=== PATIENT | male | born 1965 | race Hispanic/Latino ===

== ENCOUNTER 2017-01-09 07:52 | Inpatient (IN) | payer MEDICARE ==
[~2017-01-09 07:52] MED LIST: ANCEF/STERILE WATER 2 GM/20 ML 2 GM/20 ML SYRINGE IV NR; NACL 0.9% 1000 ML 1,000 ML IV SCH
[2017-01-09 10:41] LABS: Basophils % (Auto) 1.2 % (0.0-1.8); Eosinophils % (Auto) 2.6 % (0.0-4.3); Hematocrit 40.9 % (35.5-45.6); Hemoglobin 13.4 gm/dl (11.8-15.2); Mean Corpuscular HGB Conc 33 % (32-34); Mean Corpuscular Hemoglobin 28 pg (28-32); Mean Corpuscular Volume 84 fl (84-94); Platelet Count 228 K/mm3 (140-440); Red Blood Count 4.88 M/mm3 (3.65-5.03); Red Cell Distribution Width 13.9 % (13.2-15.2); White Blood Count 7.9 K/mm3 (4.5-11.0)
[2017-01-09 10:49] LABS: INR 1.03 (0.87-1.13)
[2017-01-09 10:50] LABS: Partial Thromboplastin Time 24.9 Sec. (24.2-36.6)
--- NOTE | 2017-01-09 11:35 | Short Stay Summary ---
Short Stay Documentation Date of service: 01/09/17 - History Principal diagnosis: Right nephrolithiasis Past Medical History: other (kidney stones) Social history: no significant social history - Allergies and Medications Current Medications: Allergies Iodinated Contrast Media - IV Dye Allergy (Verified 01/03/17 11:51) Hives tramadol Allergy (Verified 01/03/17 11:51) Headache Home Medications Medication Instructions Recorded Confirmed Last Taken Type Albuterol Sulfate [Ventolin HFA] 2 puff IH Q4H PRN 01/03/17 01/09/17 01/08/17 History Aspirin [Adult Low Dose Aspirin EC] 81 mg PO DAILY 01/03/17 01/09/17 01/08/17 History Carisoprodol [Soma] 350 mg PO TID PRN 01/03/17 01/09/17 01/08/17 History Carvedilol [Coreg] 12.5 mg PO BID 01/03/17 01/09/17 01/08/17 History Citalopram [Celexa] 40 mg PO DAILY 01/03/17 01/09/17 01/08/17 History Diphenoxylate/Atropine [Lomotil] 1 tab PO PRN PRN 01/03/17 01/09/17 Unknown History Fenofibrate [Tricor] 145 mg PO QDAY 01/03/17 01/09/17 01/08/17 History Gabapentin [Neurontin] 300 mg PO QHS 01/03/17 01/09/17 01/08/17 History Meclizine [Antivert] 25 mg PO BID PRN 01/03/17 01/09/17 01/08/17 History Nitroglycerin [Nitrostat] 0.4 mg SL Q5M PRN 01/03/17 01/09/17 Unknown History Omeprazole 40 mg PO DAILY 01/03/17 01/09/17 01/08/17 History Oxycodone HCl/Acetaminophen 1 each PO Q6HR PRN 01/03/17 01/09/17 01/08/17 History [Percocet 10/325 mg] Pravastatin Sodium [Pravastatin] 40 mg PO QHS 01/03/17 01/09/17 01/08/17 History Tadalafil [Cialis] 10 mg PO PRN PRN 01/03/17 01/09/17 Unknown History Ubidecarenone [Coq-10] 100 mg PO DAILY 01/03/17 01/09/17 01/08/17 History metFORMIN [Glucophage] 500 mg PO BID 01/03/17 01/09/17 01/07/17 History Active Medications Cefazolin Sodium (Ancef/Sterile Water 2 Gm/20 Ml) 2 gm in 20 mls @ 80 mls/hr IV PREOP NR PRN Reason: Protocol Stop: 01/09/17 23:59 Sodium Chloride (Nacl 0.9% 1000 Ml) 1,000 mls @ 42 mls/hr IV DIRECT [place] Last Admin: 01/09/17 10:39 Dose: 42 mls/hr - Physical exam General appearance: no acute distress, obese Integumentary: no rash, no growths HEENT: Atraumatic Lungs: Normal air movement Heart: Regular rate Gastrointestinal: normal Male Genitourinary: deferred Rectal Exam: deferred Extremities: no ischemia Neurological: Normal gait, Normal tone - Brief post op/procedure progress note Date of procedure: 01/09/17 Pre-op diagnosis: Right nephrolithiasis Post-op diagnosis: same Procedure: /US and fluoro guided nephroureteral stent Anesthesia: local Surgeon: JAEL ALDANA Estimated blood loss: minimal Pathology: none Condition: stable - Disposition Condition at discharge: Good Disposition: [id number] IP Short Stay Discharge Plan Activity: advance as tolerated Weight Bearing Status: Weight Bear as Tolerated Diet: regular Wound: keep clean and dry, per your surgeon's advice Follow up with: ALEX SAMSON MD [Staff Physician] - 7 Days
--- NOTE | 2017-01-09 11:38 | Operative Report ---
Operative Report Operative Report: EXAM: ULTRASOUND AND FLUOROSCOPIC GUIDED PLACEMENT OF RIGHT NEPHROURETERAL STENT CLINICAL INDICATION: PATIENT WITH RIGHT NEPHROLITHIASIS, STENT PLACED IN ANTICIPATION OF SURGERY TOMORROW DATE: 01/09/2017 PROCEDURE: Following an explanation of the risks, benefits and alternatives; written informed consent was obtained. The patient was brought to the injury graphic suite and placed in prone position on the examination table. Initial ultrasound evaluation of the right kidney demonstrated no hydronephrosis. There was minimal calyceal dilatation and the patient's right back and flank were prepped and draped in the usual sterile fashion. 1% lidocaine was used for anesthesia. Under ultrasound guidance, a posterior middle calyx was cannulated with a 15 cm 21-gauge needle. A 0.018 guidewire was advanced centrally under fluoroscopy. The needle was removed and AccuStick transition tissue packer placed over the guidewire. Contrast was injected through the AccuStick transition dilator to document appropriate puncture site as well as appropriate positioning for stone retrieval. The 0.018 guidewire was exchanged for a 0.035 guidewire which was advanced to the bladder. The transition dilator was then removed and a 5 Beninese pigtail catheter was placed over the guidewire and advanced to position the pigtail within the bladder with the catheter exit site through the kidney on to the skin surface. The catheter was securely fasten the skin surface using 2-0 Ethilon and coiled and sterilely dressed. The patient tolerated the procedure well. There were no immediate post procedure complications. Conscious sedation was performed under the guidance of radiologic nursing. Continuous cardiopulmonary monitoring was utilized. IMPRESSION: 1) Ultrasound and fluoroscopic guided placement of a 5 Beninese nephroureteral stent through a posterior middle calyx in the right kidney.
[2017-01-09] MEDS ORDERED: NORCO 5/325 ONE (13:51)
[2017-01-09] MEDS: NORCO 5/325 PO PRN (14:00)
[2017-01-09 14:04] LABS: Alanine Aminotransferase 12 units/L (7-56); Albumin 4.4 g/dL (3.9-5); Albumin/Globulin Ratio 1.9 %; Alkaline Phosphatase 46 units/L (35-129); Anion Gap 20 mmol/L; BUN/Creatinine Ratio 15.55; Blood Urea Nitrogen 14 mg/dL (9-20); Calcium 9.4 mg/dL (8.4-10.2); Carbon Dioxide 20 mmol/L (22-30); Chloride 102.3 mmol/L (98-107); Glucose 117 mg/dL (75-100); Potassium 4.5 mmol/L (3.6-5.0); Sodium 138 mmol/L (137-145); Total Protein 6.7 g/dL (6.3-8.2)
[2017-01-09] MEDS ORDERED: AMBIEN PO PRN (17:58)
[2017-01-09] MEDS ORDERED: PERCOCET 5/325 PO PRN (22:50)
[2017-01-09] MEDS ORDERED: ZOFRAN IV PRN (22:50)
[2017-01-09] MEDS ORDERED: TYLENOL PO PRN (22:50)
[2017-01-09] MEDS ORDERED: MILK OF MAGNESIA PO PRN (22:50)
[2017-01-09] MEDS ORDERED: DULCOLAX PR PRN (22:50)
--- NOTE | 2017-01-09 22:50 | History and Physical Report ---
History of Present Illness Date of examination: 01/09/17 Date of admission: 01/09/17 13:36 Chief complaint: Rt Ureteric Stone with obstruction History of present illness: Ultrasound and fluoroscopic guided placement of a 5 [place]alan nephroureteral stent through a posterior middle calyx in the right kidney by Dr Jarvis. Admitted for possible surgery and removal of Rt Uretric stone by Laser tomorrow by Dr Truong. Past History Past Medical History: CAD, diabetes, hypertension, hyperlipidemia, other ( kidney stones) Past Surgical History: Other (Rt Nephrostomy tube placement) Social history: no significant social history, smoking Family history: hypertension Medications and Allergies Allergies Allergy/AdvReac Type Severity Reaction Status Date / Time Iodinated Contrast Media - Allergy Hives Verified 01/03/17 11:51 IV Dye tramadol Allergy Headache Verified 01/03/17 11:51 Home Medications Medication Instructions Recorded Confirmed Last Taken Type Albuterol Sulfate [Ventolin HFA] 2 puff IH Q4H PRN 01/03/17 01/09/17 01/08/17 History Aspirin [Adult Low Dose Aspirin EC] 81 mg PO DAILY 01/03/17 01/09/17 01/08/17 History Carisoprodol [Soma] 350 mg PO TID PRN 01/03/17 01/09/17 01/08/17 History Carvedilol [Coreg] 12.5 mg PO BID 01/03/17 01/09/17 01/08/17 History Citalopram [Celexa] 40 mg PO DAILY 01/03/17 01/09/17 01/08/17 History Diphenoxylate/Atropine [Lomotil] 1 tab PO PRN PRN 01/03/17 01/09/17 Unknown History Fenofibrate [Tricor] 145 mg PO QDAY 01/03/17 01/09/17 01/08/17 History Gabapentin [Neurontin] 300 mg PO QHS 01/03/17 01/09/17 01/08/17 History Meclizine [Antivert] 25 mg PO BID PRN 01/03/17 01/09/17 01/08/17 History Nitroglycerin [Nitrostat] 0.4 mg SL Q5M PRN 01/03/17 01/09/17 Unknown History Omeprazole 40 mg PO DAILY 01/03/17 01/09/1701/08/17 History Oxycodone HCl/Acetaminophen 1 each PO Q6HR PRN 01/03/17 01/09/17 01/08/17 History [Percocet 10/325 mg] Pravastatin Sodium [Pravastatin] 40 mg PO QHS 01/03/17 01/09/17 01/08/17 History Tadalafil [Cialis] 10 mg PO PRN PRN 01/03/17 01/09/17 Unknown History Ubidecarenone [Coq-10] 100 mg PO DAILY 01/03/17 01/09/17 01/08/17 History metFORMIN [Glucophage] 500 mg PO BID 01/03/17 01/09/17 01/07/17 History Active Meds: Active Medications Acetaminophen/Hydrocodone Bitart ([place] 5/325) 1 each PO Q4H PRN PRN Reason: Pain, Moderate (4-6) Last Admin: 01/09/17 14:00 Dose: 1 each Cefazolin Sodium (Ancef/Sterile Water 2 Gm/20 Ml) 2 gm in 20 mls @ 80 mls/hr IV PREOP NR PRN Reason: Protocol Stop: 01/09/17 23:59 Sodium Chloride (Nacl 0.9% 1000 Ml) 1,000 mls @ 42 mls/hr IV DIRECT [place] Last Admin: 01/09/17 10:39 Dose: 42 mls/hr Zolpidem Tartrate (Ambien) 10 mg PO QHS PRN PRN Reason: Insomnia Last Admin: 01/09/17 20:24 Dose: 10 mg Review of Systems All systems: negative Exam - Constitutional Vitals: Temp Pulse Resp BP Pulse Ox 98.1 F 70 20 137/78 95 01/09/17 18:34 01/09/17 18:34 01/09/17 22:00 01/09/17 18:34 01/09/17 18:34 General appearance: Present: no acute distress, well-nourished - EENT Eyes: Present: PERRL ENT: hearing intact, clear oral mucosa - Neck Neck: Present: supple, normal ROM - Respiratory Respiratory effort: normal Respiratory: bilateral: CTA - Cardiovascular Heart Sounds: Present: S1 & S2. Absent: rub, click - Extremities Extremities: pulses symmetrical, No edema Peripheral Pulses: within normal limits - Abdominal General gastrointestinal: Present: soft, non-tender, non-distended, normal bowel sounds Male genitourinary: Present: normal - Integumentary Integumentary: Present: clear, warm, dry - Musculoskeletal Musculoskeletal: gait normal, strength equal bilaterally - Psychiatric Psychiatric: appropriate mood/affect, intact judgment & insight - Neurologic Neurologic: CNII-XII intact, moves all extremities Results - Labs CBC & Chem 7: 01/10/17 06:59 01/10/17 06:59 Labs: Laboratory Last Values WBC 7.9 K/mm3 (4.5-11.0) 01/09/17 10:24 RBC 4.88 M/mm3 (3.65-5.03) 01/09/17 10:24 Hgb 13.4 gm/dl (11.8-15.2) 01/09/17 10:24 Hct 40.9 % (35.5-45.6) 01/09/17 10:24 MCV 84 fl (84-94) 01/09/17 10:24 MCH 28 pg (28-32) 01/09/17 10:24 MCHC 33 % (32-34) 01/09/17 10:24 RDW 13.9 % (13.2-15.2) 01/09/17 10:24 Plt Count 228 K/mm3 (140-440) 01/09/17 10:24 Lymph % (Auto) 28.5 % (13.4-35.0) 01/09/17 10:24 [place] % (Auto) 7.4 % (0.0-7.3) H 01/09/17 10:24 Eos % (Auto) 2.6 % (0.0-4.3) 01/09/17 10:24 Baso % (Auto) 1.2 % (0.0-1.8) 01/09/17 10:24 Lymph # 2.3 K/mm3 (1.2-5.4) 01/09/17 10:24 [place] # 0.6 K/mm3 (0.0-0.8) 01/09/17 10:24 Eos # 0.2 K/mm3 (0.0-0.4) 01/09/17 10:24 Baso # 0.1 K/mm3 (0.0-0.1) 01/09/17 10:24 Seg Neutrophils % 60.3 % (40.0-70.0) 01/09/17 10:24 Seg Neutrophils # 4.8 K/mm3 (1.8-7.7) 01/09/17 10:24 PT 13.4 Sec. (12.2-14.9) 01/09/17 10:24 INR 1.03 (0.87-1.13) 01/09/17 10:24 APTT 24.9 Sec. (24.2-36.6) 01/09/17 10:24 Sodium 138 mmol/L (137-145) 01/09/17 10:24 Potassium 4.5 mmol/L (3.6-5.0) 01/09/17 10:24 Chloride 102.3 mmol/L (98-107) 01/09/17 10:24 Carbon Dioxide 20 mmol/L (22-30) L 01/09/17 10:24 Anion Gap 20 mmol/L 01/09/17 10:24 BUN 14 mg/dL (9-20) 01/09/17 10:24 Creatinine 0.9 mg/dL (0.8-1.5) 01/09/17 10:24 Estimated GFR > 60 ml/min 01/09/17 10:24 BUN/Creatinine Ratio 15.55 % 01/09/17 10:24 Glucose 117 mg/dL (75-100) H 01/09/17 10:24 POC Glucose 142 (70-105) H 01/09/17 21:16 Calcium 9.4 mg/dL (8.4-10.2) 01/09/17 10:24 Total Bilirubin 0.20 mg/dL (0.1-1.2) 01/09/17 10:24 AST 18 units/L (5-40) 01/09/17 10:24 ALT 12 units/L (7-56) 01/09/17 10:24 Alkaline Phosphatase 46 units/L (35-129) 01/09/17 10:24 Total Protein 6.7 g/dL (6.3-8.2) 01/09/17 10:24 Albumin 4.4 g/dL (3.9-5) 01/09/17 10:24 Albumin/Globulin Ratio 1.9 % 01/09/17 10:24 Blood Type A NEGATIVE 01/09/17 10:24 Antibody Screen TNR 01/09/17 10:24 ONEAL Antibody Screen Negative 01/09/17 10:24 Short CBC 01/09/17 01/10/17 Range/Units 10:24 06:59 WBC 7.9 12.3 H (4.5-11.0) K/mm3 Hgb 13.4 13.5 (11.8-15.2) gm/dl Hct 40.9 40.5 (35.5-45.6) % Plt Count 228 258 (140-440) K/mm3 BMP 01/09/17 01/10/17 10:24 06:59 Sodium 138 137 Potassium 4.5 4.0 Chloride 102.3 100.0 Carbon Dioxide 20 L 22 BUN 14 19 Creatinine 0.9 0.9 Glucose 117 H 105 H Calcium 9.4 8.8 Liver Function 01/09/17 01/10/17 Range/Units 10:24 06:59 Total Bilirubin 0.20 0.40 (0.1-1.2) mg/dL AST 18 16 (5-40) units/L ALT 12 11 (7-56) units/L Alkaline Phosphatase 46 46 (35-129) units/L Albumin 4.4 4.4 (3.9-5) g/dL Assessment and Plan Advance Directives: Yes (Full code) Plan of care discussed with patient/family: Yes - Patient Problems (1) Nephrolithiasis Current Visit: Yes Status: Acute Plan to address problem: Rt Nephrolithiasis.Had Nephrostomy tube placed today.For Surgical removal tomorrow.By Dr Truong. (2) HTN (hypertension) Current Visit: Yes Status: Chronic Qualifiers: Hypertension type: essential hypertension Qualified Code(s): I10 - Essential (primary) hypertension Plan to address problem: Cont Antihypertensives in the form of Carvedilol (3) T2DM (type 2 diabetes mellitus) Current Visit: Yes Status: Chronic Qualifiers: Diabetes mellitus complication status: without complication Diabetes mellitus complication detail: D Diabetic retinopathy severity: D Proliferative retinopathy type: P Diabetes mellitus macular edema: D Diabetes mellitus long-term insulin use: D Laterality: L Chronic kidney disease stage: C Plan to address problem: Hold Metformin.B/c of contrast use .Coverage for now. (4) HLD (hyperlipidemia) Current Visit: Yes Status: Chronic Qualifiers: Hyperlipidemia type: mixed hyperlipidemia Qualified Code(s): E78.2 - Mixed hyperlipidemia Plan to address problem: Cont statins (5) Asthma Current Visit: Yes Status: Chronic Qualifiers: Asthma severity: A Asthma complication type: uncomplicated Plan to address problem: Ventolin HFA prn (6) Hypertriglyceridemia Current Visit: Yes Status: Chronic Plan to address problem: On Fenofibrate but will hold (7) DVT prophylaxis Current Visit: Yes Status: Acute Plan to address problem: on scd's
[2017-01-09] MEDS ORDERED: LOMOTIL PO PRN (22:52)
[2017-01-09] MEDS ORDERED: ANTIVERT PO PRN (22:52)
[2017-01-09] MEDS ORDERED: SOMA PO PRN (22:52)
[2017-01-09] MEDS ORDERED: NITROSTAT SL PRN (22:52)
[2017-01-09] MEDS ORDERED: PROAIR IH PRN (22:52)
[2017-01-09] MEDS ORDERED: NACL 0.45% 1000 ML 1,000 ML IV SCH (23:00)
[2017-01-09] MEDS ORDERED: PROVENTIL IH PRN (23:24)
[2017-01-09] MEDS: COREG PO SCH (23:57)
[2017-01-09] MEDS: DILAUDID IV PRN (23:59)
[2017-01-10] MEDS: DILAUDID IV PRN ×10 (05:47→22:46)
[2017-01-10 07:49] LABS: Basophils % (Auto) 0.3 % (0.0-1.8); Eosinophils % (Auto) 0.5 % (0.0-4.3); Hematocrit 40.5 % (35.5-45.6); Hemoglobin 13.5 gm/dl (11.8-15.2); Mean Corpuscular HGB Conc 33 % (32-34); Mean Corpuscular Hemoglobin 28 pg (28-32); Mean Corpuscular Volume 83 fl (84-94); Platelet Count 258 K/mm3 (140-440); Red Blood Count 4.89 M/mm3 (3.65-5.03); Red Cell Distribution Width 14.3 % (13.2-15.2); White Blood Count 12.3 K/mm3 (4.5-11.0)
[2017-01-10 08:03] LABS: Alanine Aminotransferase 11 units/L (7-56); Albumin 4.4 g/dL (3.9-5); Albumin/Globulin Ratio 1.8 %; Alkaline Phosphatase 46 units/L (35-129); Anion Gap 19 mmol/L; BUN/Creatinine Ratio 21.11; Blood Urea Nitrogen 19 mg/dL (9-20); Calcium 8.8 mg/dL (8.4-10.2); Carbon Dioxide 22 mmol/L (22-30); Glucose 105 mg/dL (75-100); Sodium 137 mmol/L (137-145); Total Protein 6.9 g/dL (6.3-8.2)
[2017-01-10] MEDS: celeXA PO SCH (09:50)
[2017-01-10] MEDS: PEPCID IV SCH ×2 (09:50→22:45)
[2017-01-10] MEDS: TRICOR PO SCH (09:51)
[2017-01-10] MEDS: COREG PO SCH ×2 (09:51→22:44)
--- NOTE | 2017-01-10 11:50 | Progress Note ---
Assessment and Plan Assessment and plan: Ultrasound and fluoroscopic guided placement of a 5 [place] nephroureteral stent through a posterior middle calyx in the right kidney by Dr Jarvis. Admitted for possible surgery and removal of Rt Uretric stone by Laser tomorrow by Dr Truong. (1) Nephrolithiasis Current Visit: Yes Status: Acute Plan to address problem: Rt Nephrolithiasis.Had Nephrostomy tube placed today.For Surgical removal today By Dr Truong. 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 (4) HLD (hyperlipidemia) Current Visit: Yes Status: Chronic Qualifiers: Hyperlipidemia type: mixed hyperlipidemia Qualified Code(s): E78.2 - Mixed hyperlipidemia Plan to address problem: Cont statins (5) Asthma Current Visit: Yes Status: Chronic Qualifiers: Asthma severity: A Asthma complication type: uncomplicated Plan to address problem: Ventolin HFA prn (6) Hypertriglyceridemia Current Visit: Yes Status: Chronic Plan to address problem: On Fenofibrate but will hold (7) DVT prophylaxis Current Visit: Yes Status: Acute Plan to address problem: on scd's Hospitalist Physical - Constitutional Vitals: Temp Pulse Resp BP Pulse Ox 98.6 F 73 20 123/70 98 01/10/17 07:00 01/10/17 09:51 01/10/17 07:00 01/10/17 09:51 01/10/17 07:00 General appearance: Present: no acute distress, well-nourished Results - Labs CBC & Chem 7: 01/10/17 06:59 01/10/17 06:59 Labs: Laboratory Last Values WBC 12.3 K/mm3 (4.5-11.0) H 01/10/17 06:59 RBC 4.89 M/mm3 (3.65-5.03) 01/10/17 06:59 Hgb 13.5 gm/dl (11.8-15.2) 01/10/17 06:59 Hct 40.5 % (35.5-45.6) 01/10/17 06:59 MCV 83 fl (84-94) L 01/10/17 06:59 MCH 28 pg (28-32) 01/10/17 06:59 MCHC 33 % (32-34) 01/10/17 06:59 RDW 14.3 % (13.2-15.2) 01/10/17 06:59 Plt Count 258 K/mm3 (140-440) 01/10/17 06:59 Lymph % (Auto) 17.9 % (13.4-35.0) 01/10/17 06:59 [place] % (Auto) 9.4 % (0.0-7.3) H 01/10/17 06:59 Eos % (Auto) 0.5 % (0.0-4.3) 01/10/17 06:59 Baso % (Auto) 0.3 % (0.0-1.8) 01/10/17 06:59 Lymph # 2.2 K/mm3 (1.2-5.4) 01/10/17 06:59 [place] # 1.2 K/mm3 (0.0-0.8) H 01/10/17 06:59 Eos # 0.1 K/mm3 (0.0-0.4) 01/10/17 06:59 Baso # 0.0 K/mm3 (0.0-0.1) 01/10/17 06:59 Seg Neutrophils % 71.9 % (40.0-70.0) H 01/10/17 06:59 Seg Neutrophils # 8.8 K/mm3 (1.8-7.7) H 01/10/17 06:59 PT 13.4 Sec. (12.2-14.9) 01/09/17 10:24 INR 1.03 (0.87-1.13) 01/09/17 10:24 APTT 24.9 Sec. (24.2-36.6) 01/09/17 10:24 Sodium 137 mmol/L (137-145) 01/10/17 06:59 Potassium 4.0 mmol/L (3.6-5.0) 01/10/17 06:59 Chloride 100.0 mmol/L (98-107) 01/10/17 06:59 Carbon Dioxide 22 mmol/L (22-30) 01/10/17 06:59 Anion Gap 19 mmol/L 01/10/17 06:59 BUN 19 mg/dL (9-20) 01/10/17 06:59 Creatinine 0.9 mg/dL (0.8-1.5) 01/10/17 06:59 Estimated GFR > 60 ml/min 01/10/17 06:59 BUN/Creatinine Ratio 21.11 % 01/10/17 06:59 Glucose 105 mg/dL (75-100) H 01/10/17 06:59 POC Glucose 98 (70-105) 01/10/17 05:33 Calcium 8.8 mg/dL (8.4-10.2) 01/10/17 06:59 Total Bilirubin 0.40 mg/dL (0.1-1.2) 01/10/17 06:59 AST 16 units/L (5-40) 01/10/17 06:59 ALT 11 units/L (7-56) 01/10/17 06:59 Alkaline Phosphatase 46 units/L (35-129) 01/10/17 06:59 Total Protein 6.9 g/dL (6.3-8.2) 01/10/17 06:59 Albumin 4.4 g/dL (3.9-5) 01/10/17 06:59 Albumin/Globulin Ratio 1.8 % 01/10/17 06:59 Blood Type A NEGATIVE 01/09/17 10:24 Antibody Screen TNR 01/09/17 10:24 ONEAL Antibody Screen Negative 01/09/17 10:24
[2017-01-10] MEDS ORDERED: DIPRIVAN 10 MG/ML IV ONE (12:34)
[2017-01-10] MEDS ORDERED: DILAUDID ONE (12:34)
[2017-01-10] MEDS ORDERED: ZEMURON IV ONE (12:35)
[2017-01-10] MEDS ORDERED: XYLOCAINE MPF 2% ONE (12:39)
--- NOTE | 2017-01-10 13:08 | Anesthesia Consultation ---
Anesthesia Consult and Med Hx - Airway Anesthetic Teeth Evaluation: Dentures (has some bottom front teeth) ROM Head & Neck: Adequate Mental/Hyoid Distance: Inadequate Mallampati Class: Class III Intubation Access Assessment: Possibly Difficult - Pulmonary Exam CTA: Yes - Cardiac Exam Cardiac Exam: RRR - Pre-Operative Health Status ASA Pre-Surgery Classification: ASA3 Proposed Anesthetic Plan: General - Pulmonary Hx Smoking: Yes (1 PPD X 38 YRS) SOB: Yes (SOB WITH ACTIVITY) COPD: Yes (INHALERS PRN) Hx Sleep Apnea: No - Cardiovascular System Hx Hypertension: Yes (and high cholesterol) Hx Coronary Artery Disease: Yes Hx Heart Attack/AMI: Yes (2009 - one stent - cardiac clearance on chart) - Central Nervous System Hx Neuromuscular Disorder: No (vertigo - takes 1-2 medicines daily) Hx Back Pain: Yes (WITH TERRY LEG PAIN -CHRONIC) Hx Psychiatric Problems: Yes - Endocrine Hx Non-Insulin Dependent Diabetes: Yes - Other Systems Hx Cancer: No - Additional Comments Anesthesia Medical History Comments: Previous anesthesia - had problems - family not sure what - tried to get up - was told it had something to do with oxygen levels.
[2017-01-10] MEDS ORDERED: NACL 0.9% 1000 ML 1,000 ML IV SCH (13:15)
[2017-01-10] MEDS ORDERED: VERSED IV NR (13:17)
[2017-01-10] MEDS ORDERED: MINERAL OIL TOPICAL LIGHT TP ONE ×2 (13:38→16:01)
[2017-01-10] MEDS ORDERED: BENADRYL ONE (13:50)
--- NOTE | 2017-01-10 14:03 | Anesthesia Day of Surgery ---
Anesthesia Day of Surgery - Day of Surgery Patient Examined: Yes Patient H&P Reviewed: Yes Patient is NPO: Yes Beta Blockers: Yes Cardiac Clearance: Yes
[2017-01-10] MEDS ORDERED: OMNIPAQUE (300 MG) IR ONE ×4 (15:20)
[2017-01-10] MEDS ORDERED: NACL 0.9% IR ONE ×2 (16:02)
[2017-01-10] MEDS ORDERED: WATER FOR IRRIG STERILE IR ONE (16:03)
[2017-01-10] MEDS ORDERED: ZOFRAN ONE (17:03)
[2017-01-10] MEDS ORDERED: NACL 0.9% 1000 ML 1,000 ML ONE ×2 (17:10)
--- NOTE | 2017-01-10 17:59 | Post Operative Note ---
Pre-op diagnosis: right renal stones Post-op diagnosis: same Findings: hundred small frags, several 3-7mm stones Procedure: right pnl Anesthesia: CHRIS Surgeon: ALEX SAMSON Estimated blood loss: other (100cc) Pathology: list (stone) Specimen disposition: to lab Condition: stable Disposition: PACU
[2017-01-10] MEDS ORDERED: PROVENTIL IH PRN (18:30)
--- NOTE | 2017-01-10 19:50 | Post Anesthesia Evaluation ---
- Post Anesthesia Evaluation Patient Participated: Yes Airway Patent: Yes Stable Respiratory Function: Yes Temp > 96.8F: Yes Pain Manageable: Yes Adequeate Hydration: Yes Anesthesia Complications: No Block Receding Appropriately: Not Applicable
[2017-01-10] MEDS: NEURONTIN PO SCH (22:45)
[2017-01-11] MEDS: DILAUDID IV PRN ×4 (02:47→16:47)
[2017-01-11 06:21] LABS: Basophils % (Auto) 0.6 % (0.0-1.8); Eosinophils % (Auto) 0.5 % (0.0-4.3); Hematocrit 34.8 % (35.5-45.6); Hemoglobin 11.7 gm/dl (11.8-15.2); Mean Corpuscular HGB Conc 34 % (32-34); Mean Corpuscular Hemoglobin 28 pg (28-32); Mean Corpuscular Volume 84 fl (84-94); Platelet Count 224 K/mm3 (140-440); Red Blood Count 4.14 M/mm3 (3.65-5.03); Red Cell Distribution Width 13.8 % (13.2-15.2); White Blood Count 10.7 K/mm3 (4.5-11.0)
[2017-01-11 06:40] LABS: Anion Gap 19 mmol/L; BUN/Creatinine Ratio 18.88; Blood Urea Nitrogen 17 mg/dL (9-20); Calcium 7.6 mg/dL (8.4-10.2); Carbon Dioxide 21 mmol/L (22-30); Chloride 101.6 mmol/L (98-107); Glucose 97 mg/dL (75-100); Sodium 138 mmol/L (137-145)
--- NOTE | 2017-01-11 07:17 | Progress Note ---
Assessment and Plan Assessment and plan: Ultrasound and fluoroscopic guided placement of a 5 [place]ian nephroureteral stent through a posterior middle calyx in the right kidney by Dr Jarvis. Admitted for possible surgery and removal of Rt Uretric stone by Laser tomorrow by Dr Truong. (1) Nephrolithiasis Current Visit: Yes Status: Acute Plan to address problem: Rt Nephrolithiasis.Had Nephrostomy tube placed today.For Surgical removal today By Dr Truong. 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 (4) HLD (hyperlipidemia) Current Visit: Yes Status: Chronic Qualifiers: Hyperlipidemia type: mixed hyperlipidemia Qualified Code(s): E78.2 - Mixed hyperlipidemia Plan to address problem: Cont statins (5) Asthma Current Visit: Yes Status: Chronic Qualifiers: Asthma severity: A Asthma complication type: uncomplicated Plan to address problem: Ventolin HFA prn (6) Hypertriglyceridemia Current Visit: Yes Status: Chronic Plan to address problem: On Fenofibrate but will hold (7) DVT prophylaxis Current Visit: Yes Status: Acute Plan to address problem: on scd's Hospitalist Physical - Constitutional Vitals: Temp Pulse Resp BP Pulse Ox 99.6 F 74 20 121/72 96 01/11/17 04:09 01/11/17 04:09 01/11/17 04:09 01/11/17 04:09 01/11/17 04:09 General appearance: Present: no acute distress, well-nourished Results - Labs CBC & Chem 7: 01/11/17 06:03 01/11/17 06:03 Labs: Laboratory Last Values WBC 10.7 K/mm3 (4.5-11.0) 01/11/17 06:03 RBC 4.14 M/mm3 (3.65-5.03) 01/11/17 06:03 Hgb 11.7 gm/dl (11.8-15.2) L 01/11/17 06:03 Hct 34.8 % (35.5-45.6) L 01/11/17 06:03 MCV 84 fl (84-94) 01/11/17 06:03 MCH 28 pg (28-32) 01/11/17 06:03 MCHC 34 % (32-34) 01/11/17 06:03 RDW 13.8 % (13.2-15.2) 01/11/17 06:03 Plt Count 224 K/mm3 (140-440) 01/11/17 06:03 Lymph % (Auto) 21.2 % (13.4-35.0) 01/11/17 06:03 [place] % (Auto) 9.9 % (0.0-7.3) H 01/11/17 06:03 Eos % (Auto) 0.5 % (0.0-4.3) 01/11/17 06:03 Baso % (Auto) 0.6 % (0.0-1.8) 01/11/17 06:03 Lymph # 2.3 K/mm3 (1.2-5.4) 01/11/17 06:03 [place] # 1.1 K/mm3 (0.0-0.8) H 01/11/17 06:03 Eos # 0.0 K/mm3 (0.0-0.4) 01/11/17 06:03 Baso # 0.1 K/mm3 (0.0-0.1) 01/11/17 06:03 Seg Neutrophils % 67.8 % (40.0-70.0) 01/11/17 06:03 Seg Neutrophils # 7.3 K/mm3 (1.8-7.7) 01/11/17 06:03 PT 13.4 Sec. (12.2-14.9) 01/09/17 10:24 INR 1.03 (0.87-1.13) 01/09/17 10:24 APTT 24.9 Sec. (24.2-36.6) 01/09/17 10:24 Sodium 138 mmol/L (137-145) 01/11/17 06:03 Potassium 4.0 mmol/L (3.6-5.0) 01/11/17 06:03 Chloride 101.6 mmol/L (98-107) 01/11/17 06:03 Carbon Dioxide 21 mmol/L (22-30) L 01/11/17 06:03 Anion Gap 19 mmol/L 01/11/17 06:03 BUN 17 mg/dL (9-20) 01/11/17 06:03 Creatinine 0.9 mg/dL (0.8-1.5) 01/11/17 06:03 Estimated GFR > 60 ml/min 01/11/17 06:03 BUN/Creatinine Ratio 18.88 % 01/11/17 06:03 Glucose 97 mg/dL (75-100) 01/11/17 06:03 POC Glucose 96 (70-105) 01/10/17 22:37 Calcium 7.6 mg/dL (8.4-10.2) L 01/11/17 06:03 Total Bilirubin 0.40 mg/dL (0.1-1.2) 01/10/17 06:59 AST 16 units/L (5-40) 01/10/17 06:59 ALT 11 units/L (7-56) 01/10/17 06:59 Alkaline Phosphatase 46 units/L (35-129) 01/10/17 06:59 Total Protein 6.9 g/dL (6.3-8.2) 01/10/17 06:59 Albumin 4.4 g/dL (3.9-5) 01/10/17 06:59 Albumin/Globulin Ratio 1.8 % 01/10/17 06:59 Blood Type A NEGATIVE 01/09/17 10:24 Antibody Screen TNR 01/09/17 10:24 ONEAL Antibody Screen Negative 01/09/17 10:24
--- NOTE | 2017-01-11 08:19 | Discharge Summary ---
Providers - Providers Date of Admission: 01/09/17 13:36 Attending physician: NEW LUX MD Primary care physician: BARK SPUDDER Hospitalization Condition: Good Hospital course: Ultrasound and fluoroscopic guided placement of a 5 [place]ian nephroureteral stent through a posterior middle calyx in the right kidney by Dr Jarvis. Admitted for possible surgery and removal of Rt Uretric stone by Laser tomorrow by Dr Truong. (1) Nephrolithiasis Current Visit: Yes Status: Acute Plan to address problem: Rt Nephrolithiasis.Had Nephrostomy tube placed today.For Surgical removal today By Dr Truong. sp Lithotripsy (2) HTN (hypertension) Current Visit: Yes Status: Chronic Qualifiers: Hypertension type: essential hypertension Qualified Code(s): I10 - Essential (primary) hypertension Plan to address problem: Cont Antihypertensives in the form of Carvedilol (3) T2DM (type 2 diabetes mellitus) Current Visit: Yes Status: Chronic Qualifiers: Diabetes mellitus complication status: without complication Diabetes mellitus complication detail: D Diabetic retinopathy severity: D Proliferative retinopathy type: P Diabetes mellitus macular edema: D Diabetes mellitus technician terminal and repeater insulin use: D Laterality: L Chronic kidney disease stage: C Plan to address problem: Hold Metformin.B/c of contrast use .Coverage for now. (4) HLD (hyperlipidemia) Current Visit: Yes Status: Chronic Qualifiers: Hyperlipidemia type: mixed hyperlipidemia Qualified Code(s): E78.2 - Mixed hyperlipidemia Plan to address problem: Cont statins (5) Asthma Current Visit: Yes Status: Chronic Qualifiers: Asthma severity: A Asthma complication type: uncomplicated Plan to address problem: Ventolin HFA prn (6) Hypertriglyceridemia Current Visit: Yes Status: Chronic Plan to address problem: On Fenofibrate but will hold (7) DVT prophylaxis Current Visit: Yes Status: Acute Plan to address problem: on scd's Disposition: DC-01 TO HOME OR SELFCARE Time spent for discharge: 35 minutes Core Measure Documentation - Palliative Care Palliative Care/ Comfort Measures: Not Applicable - Core Measures Any of the following diagnoses?: none Exam - Constitutional Vitals: Temp Pulse Resp BP Pulse Ox 99.6 F 74 20 121/72 96 01/11/17 04:09 01/11/17 04:09 01/11/17 04:09 01/11/17 04:09 01/11/17 04:09 General appearance: Present: no acute distress, well-nourished - EENT Eyes: Present: PERRL ENT: hearing intact, clear oral mucosa - Neck Neck: Present: supple, normal ROM - Respiratory Respiratory effort: normal Respiratory: bilateral: CTA - Cardiovascular Heart Sounds: Present: S1 & S2. Absent: rub, click - Extremities Extremities: pulses symmetrical, No edema Peripheral Pulses: within normal limits - Abdominal General gastrointestinal: Present: soft, non-tender, non-distended, normal bowel sounds Male genitourinary: Present: normal - Integumentary Integumentary: Present: clear, warm, dry - Musculoskeletal Musculoskeletal: gait normal, strength equal bilaterally - Psychiatric Psychiatric: appropriate mood/affect, intact judgment & insight - Neurologic Neurologic: CNII-XII intact, moves all extremities Plan Follow up with: ALEX TRUONG MD [Staff Physician] - 7 Days Prescriptions: Oxycodone HCl/Acetaminophen [Percocet 10/325 mg] 0.5 - 1 each PO Q6HR PRN #30 tablet PRN Reason: Pain
--- NOTE | 2017-01-11 09:12 | Progress Note ---
Assessment and Plan RT RENAL STONES - s/p PNL - D/C Mehta, D/C wire - ambulate, oob - consder discharge today vs early am Subjective Date of service: 01/11/17 Principal diagnosis: Right nephrolithiasis Interval history: neph tube pain bladder spasms Objective - Constitutional Vitals: Vital Signs - 12hr 01/10/17 01/10/17 01/11/17 22:44 23:40 03:10 Temperature 98.7 F Pulse Rate 80 Pulse Rate [ 75 Anterior Bilateral Throughout] Pulse Rate [ 75 From Monitor] Respiratory 20 Rate Respiratory 20 Rate [Anterior Bilateral Throughout] Blood Pressure 144/80 Blood Pressure 120/68 [Left Arm] Blood Pressure [Right] O2 Sat by Pulse 97 Oximetry 01/11/17 01/11/17 01/11/17 03:13 04:09 08:30 Temperature 99.6 F 98.5 F Pulse Rate 74 75 Pulse Rate [ 81 Anterior Bilateral Throughout] Pulse Rate [ From Monitor] Respiratory 20 18 Rate Respiratory 16 Rate [Anterior Bilateral Throughout] Blood Pressure Blood Pressure [Left Arm] Blood Pressure 121/72 127/78 [Right] O2 Sat by Pulse 96 Oximetry 01/11/17 08:42 Temperature Pulse Rate Pulse Rate [ Anterior Bilateral Throughout] Pulse Rate [ From Monitor] Respiratory 16 Rate Respiratory Rate [Anterior Bilateral Throughout] Blood Pressure Blood Pressure [Left Arm] Blood Pressure [Right] O2 Sat by Pulse Oximetry - Gastrointestinal Rectal Exam: other (cath and neph tube dk red; drsg min blood) - Labs CBC & Chem 7: 01/11/17 06:03 01/11/17 06:03 Labs: Abnormal lab results 01/10/17 01/11/17 01/11/17 Range/Units 17:47 06:03 06:03 Hgb 11.7 L (11.8-15.2) gm/dl Hct 34.8 L (35.5-45.6) % [place] % (Auto) 9.9 H (0.0-7.3) % [place] # 1.1 H (0.0-0.8) K/mm3 Carbon Dioxide 21 L (22-30) mmol/L POC Glucose 143 H (70-105) Calcium 7.6 L (8.4-10.2) mg/dL
[2017-01-11] MEDS: celeXA PO SCH (09:18)
[2017-01-11] MEDS: PEPCID IV SCH ×2 (09:18→22:50)
[2017-01-11] MEDS: COREG PO SCH ×2 (09:18→22:49)
--- NOTE | 2017-01-11 09:38 | Progress Note ---
Subjective Date of service: 01/11/17 Principal diagnosis: Right nephrolithiasis Interval history: Patient seen post-op day one, satisfied with anesthesia during procedure, in pain - nurse notified; not yet ambulating. Objective - Constitutional Vitals: Vital Signs - 12hr 01/10/17 01/10/17 01/11/17 22:44 23:40 03:10 Temperature 98.7 F Pulse Rate 80 Pulse Rate [ 75 Anterior Bilateral Throughout] Pulse Rate [ 75 From Monitor] Respiratory 20 Rate Respiratory 20 Rate [Anterior Bilateral Throughout] Blood Pressure 144/80 Blood Pressure 120/68 [Left Arm] Blood Pressure [Right] O2 Sat by Pulse 97 Oximetry 01/11/17 01/11/17 01/11/17 03:13 04:09 08:30 Temperature 99.6 F 98.5 F Pulse Rate 74 75 Pulse Rate [ 81 Anterior Bilateral Throughout] Pulse Rate [ From Monitor] Respiratory 20 18 Rate Respiratory 16 Rate [Anterior Bilateral Throughout] Blood Pressure Blood Pressure [Left Arm] Blood Pressure 121/72 127/78 [Right] O2 Sat by Pulse 96 Oximetry 01/11/17 01/11/17 08:42 09:18 Temperature Pulse Rate 75 Pulse Rate [ Anterior Bilateral Throughout] Pulse Rate [ From Monitor] Respiratory 16 Rate Respiratory Rate [Anterior Bilateral Throughout] Blood Pressure 127/78 Blood Pressure [Left Arm] Blood Pressure [Right] O2 Sat by Pulse Oximetry - Labs CBC & Chem 7: 01/11/17 06:03 01/11/17 06:03 Labs: Abnormal lab results 01/10/17 01/11/17 01/11/17 Range/Units 17:47 06:03 06:03 Hgb 11.7 L (11.8-15.2) gm/dl Hct 34.8 L (35.5-45.6) % [place] % (Auto) 9.9 H (0.0-7.3) % [place] # 1.1 H (0.0-0.8) K/mm3 Carbon Dioxide 21 L (22-30) mmol/L POC Glucose 143 H (70-105) Calcium 7.6 L (8.4-10.2) mg/dL
--- NOTE | 2017-01-11 11:35 | Fluoroscopy Report ---
Right nephrostomy and right nephrostogram: On initial images as a guidewire present. Injection of contrast demonstrates a filling defect in the renal pelvis. Multiple images demonstrate introduction of the balloon with dilatation of the tract and the addition of a second guidewire. A working sheath was then placed. The additional images appear to demonstrate that the large filling defect has resolved and opacification of the collecting system shows no persistent filling defects. No additional information.
[2017-01-11] MEDS: NORCO 5/325 PO PRN ×3 (12:40→20:24)
[2017-01-11] MEDS: TRICOR PO SCH (16:24)
--- NOTE | 2017-01-11 16:47 | Progress Note ---
Assessment and Plan Assessment and plan: Ultrasound and fluoroscopic guided placement of a 5 [place] Zeal[place] nephroureteral stent through a posterior middle calyx in the right kidney by Dr Jarvis. Admitted for possible surgery and removal of Rt Uretric stone by Laser tomorrow by Dr Truong. (1) Nephrolithiasis Current Visit: Yes Status: Acute Plan to address problem: Rt Nephrolithiasis.Had Nephrostomy tube placed today.s/p Surgical removalBy Dr Truong and stone extraction (2) HTN (hypertension) Current Visit: Yes Status: Chronic Qualifiers: Hypertension type: essential hypertension Qualified Code(s): I10 - Essential (primary) hypertension Plan to address problem: Cont Antihypertensives in the form of Carvedilol (3) T2DM (type 2 diabetes mellitus) Current Visit: Yes Status: Chronic Qualifiers: Diabetes mellitus complication status: without complication Diabetes mellitus complication detail: D Diabetic retinopathy severity: D Proliferative retinopathy type: P Diabetes mellitus macular edema: D Diabetes 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 (4) HLD (hyperlipidemia) Current Visit: Yes Status: Chronic Qualifiers: Hyperlipidemia type: mixed hyperlipidemia Qualified Code(s): E78.2 - Mixed hyperlipidemia Plan to address problem: Cont statins (5) Asthma Current Visit: Yes Status: Chronic Qualifiers: Asthma severity: A Asthma complication type: uncomplicated Plan to address problem: Ventolin HFA prn (6) Hypertriglyceridemia Current Visit: Yes Status: Chronic Plan to address problem: On Fenofibrate but will hold (7) DVT prophylaxis Current Visit: Yes Status: Acute Plan to address problem: on scd's Hospitalist Physical - Constitutional Vitals: Temp Pulse Resp BP Pulse Ox 98.7 F 73 20 118/75 97 01/11/17 12:00 01/11/17 12:00 01/11/17 16:24 01/11/17 12:00 01/11/17 12:00 General appearance: Present: no acute distress, well-nourished Results - Labs CBC & Chem 7: 01/11/17 06:03 01/11/17 06:03 Labs: Laboratory Last Values WBC 10.7 K/mm3 (4.5-11.0) 01/11/17 06:03 RBC 4.14 M/mm3 (3.65-5.03) 01/11/17 06:03 Hgb 11.7 gm/dl (11.8-15.2) L 01/11/17 06:03 Hct 34.8 % (35.5-45.6) L 01/11/17 06:03 MCV 84 fl (84-94) 01/11/17 06:03 MCH 28 pg (28-32) 01/11/17 06:03 MCHC 34 % (32-34) 01/11/17 06:03 RDW 13.8 % (13.2-15.2) 01/11/17 06:03 Plt Count 224 K/mm3 (140-440) 01/11/17 06:03 Lymph % (Auto) 21.2 % (13.4-35.0) 01/11/17 06:03 [place] % (Auto) 9.9 % (0.0-7.3) H 01/11/17 06:03 Eos % (Auto) 0.5 % (0.0-4.3) 01/11/17 06:03 Baso % (Auto) 0.6 % (0.0-1.8) 01/11/17 06:03 Lymph # 2.3 K/mm3 (1.2-5.4) 01/11/17 06:03 [place] # 1.1 K/mm3 (0.0-0.8) H 01/11/17 06:03 Eos # 0.0 K/mm3 (0.0-0.4) 01/11/17 06:03 Baso # 0.1 K/mm3 (0.0-0.1) 01/11/17 06:03 Seg Neutrophils % 67.8 % (40.0-70.0) 01/11/17 06:03 Seg Neutrophils # 7.3 K/mm3 (1.8-7.7) 01/11/17 06:03 PT 13.4 Sec. (12.2-14.9) 01/09/17 10:24 INR 1.03 (0.87-1.13) 01/09/17 10:24 APTT 24.9 Sec. (24.2-36.6) 01/09/17 10:24 Sodium 138 mmol/L (137-145) 01/11/17 06:03 Potassium 4.0 mmol/L (3.6-5.0) 01/11/17 06:03 Chloride 101.6 mmol/L (98-107) 01/11/17 06:03 Carbon Dioxide 21 mmol/L (22-30) L 01/11/17 06:03 Anion Gap 19 mmol/L 01/11/17 06:03 BUN 17 mg/dL (9-20) 01/11/17 06:03 Creatinine 0.9 mg/dL (0.8-1.5) 01/11/17 06:03 Estimated GFR > 60 ml/min 01/11/17 06:03 BUN/Creatinine Ratio 18.88 % 01/11/17 06:03 Glucose 97 mg/dL (75-100) 01/11/17 06:03 POC Glucose 92 (70-105) 01/11/17 07:34 Calcium 7.6 mg/dL (8.4-10.2) L 01/11/17 06:03 Total Bilirubin 0.40 mg/dL (0.1-1.2) 01/10/17 06:59 AST 16 units/L (5-40) 01/10/17 06:59 ALT 11 units/L (7-56) 01/10/17 06:59 Alkaline Phosphatase 46 units/L (35-129) 01/10/17 06:59 Total Protein 6.9 g/dL (6.3-8.2) 01/10/17 06:59 Albumin 4.4 g/dL (3.9-5) 01/10/17 06:59 Albumin/Globulin Ratio 1.8 % 01/10/17 06:59 Blood Type A NEGATIVE 01/09/17 10:24 Antibody Screen TNR 01/09/17 10:24 ONEAL Antibody Screen Negative 01/09/17 10:24
[2017-01-11] MEDS: NEURONTIN PO SCH (22:49)
[2017-01-11] MEDS: AMBIEN PO PRN (22:49)
[2017-01-12] MEDS: DILAUDID IV PRN (01:47)
[2017-01-12 06:44] LABS: Hematocrit 35.5 % (35.5-45.6); Hemoglobin 11.9 gm/dl (11.8-15.2); Mean Corpuscular HGB Conc 33 % (32-34); Mean Corpuscular Hemoglobin 28 pg (28-32); Mean Corpuscular Volume 84 fl (84-94); Platelet Count 221 K/mm3 (140-440); Red Blood Count 4.24 M/mm3 (3.65-5.03); Red Cell Distribution Width 14.1 % (13.2-15.2); White Blood Count 9.5 K/mm3 (4.5-11.0)
[2017-01-12 07:03] LABS: Anion Gap 19 mmol/L; BUN/Creatinine Ratio 18.33; Blood Urea Nitrogen 11 mg/dL (9-20); Calcium 7.8 mg/dL (8.4-10.2); Carbon Dioxide 23 mmol/L (22-30); Chloride 101.3 mmol/L (98-107); Glucose 108 mg/dL (75-100); Potassium 3.8 mmol/L (3.6-5.0); Sodium 139 mmol/L (137-145)
[2017-01-12] MEDS: ROCEPHIN/NS 1 GM/50 ML 1 GM/50 ML BAG IV SCH (07:22)
--- NOTE | 2017-01-12 07:37 | Progress Note ---
Subjective Date of service: 01/12/17 Principal diagnosis: Right nephrolithiasis Interval history: RT RENAL STONES 01-10-17----Shantha - s/p PNL - D/C Janine D/C wire (done) temp 100.2 may need 1 more day IV ABX Objective - Constitutional Vitals: Vital Signs - 12hr 01/11/17 01/11/17 01/11/17 20:24 20:32 22:00 Temperature 98.7 F Pulse Rate 82 Respiratory 20 20 Rate Respiratory 20 Rate [Chest] Blood Pressure Blood Pressure 123/77 [Right] O2 Sat by Pulse 95 Oximetry 01/11/17 01/12/17 22:49 00:30 Temperature 100.2 F H Pulse Rate 82 87 Respiratory 20 Rate Respiratory Rate [Chest] Blood Pressure 123/77 Blood Pressure 132/89 [Right] O2 Sat by Pulse 95 Oximetry - Labs CBC & Chem 7: 01/12/17 06:25 01/12/17 06:25 Labs: Abnormal lab results 01/11/17 01/12/17 Range/Units 21:34 06:25 Creatinine 0.6 L (0.8-1.5) mg/dL Glucose 108 H (75-100) mg/dL POC Glucose 128 H (70-105) Calcium 7.8 L (8.4-10.2) mg/dL
[2017-01-12] MEDS: NORCO 5/325 PO PRN ×3 (07:40→23:12)
[2017-01-12] MEDS: PEPCID PO SCH ×2 (10:35→22:26)
[2017-01-12] MEDS: celeXA PO SCH (10:35)
[2017-01-12] MEDS: TRICOR PO SCH (10:35)
[2017-01-12] MEDS: COREG PO SCH ×2 (10:35→22:27)
[2017-01-12] MEDS: BENADRYL PO PRN ×2 (10:58→18:30)
--- NOTE | 2017-01-12 15:22 | Progress Note ---
Assessment and Plan Assessment and plan: Ultrasound and fluoroscopic guided placement of a 5 [place] nephroureteral stent through a posterior middle calyx in the right kidney by Dr Jarvis. Admitted for possible surgery and removal of Rt Uretric stone by Laser tomorrow by Dr Truong. Nephrolithiasis/obstructive uropathy Current Visit: Yes Status: Acute Rt Nephrolithiasis. sp nephrostomy and subsequent removal, with lithotripsy schmitz has been DC, string removed Sepsis/UTI continue IV abx, still febrile HTN (hypertension) Cont Antihypertensives in the form of Carvedilol T2DM (type 2 diabetes mellitus) Hold Metformin.B/c of contrast use . insulin Coverage for now. HLD (hyperlipidemia) Cont statins Asthma Ventolin HFA prn Hospitalist Physical - Constitutional Vitals: Temp Pulse Resp BP Pulse Ox 98.2 F 83 18 125/80 96 01/12/17 08:00 01/12/17 08:00 01/12/17 08:00 01/12/17 08:00 01/12/17 08:00 General appearance: Present: no acute distress, well-nourished Results - Labs CBC & Chem 7: 01/12/17 06:25 01/12/17 06:25 Labs: Laboratory Last Values WBC 9.5 K/mm3 (4.5-11.0) 01/12/17 06:25 RBC 4.24 M/mm3 (3.65-5.03) 01/12/17 06:25 Hgb 11.9 gm/dl (11.8-15.2) 01/12/17 06:25 Hct 35.5 % (35.5-45.6) 01/12/17 06:25 MCV 84 fl (84-94) 01/12/17 06:25 MCH 28 pg (28-32) 01/12/17 06:25 MCHC 33 % (32-34) 01/12/17 06:25 RDW 14.1 % (13.2-15.2) 01/12/17 06:25 Plt Count 221 K/mm3 (140-440) 01/12/17 06:25 Lymph % (Auto) 21.2 % (13.4-35.0) 01/11/17 06:03 [place] % (Auto) 9.9 % (0.0-7.3) H 01/11/17 06:03 Eos % (Auto) 0.5 % (0.0-4.3) 01/11/17 06:03 Baso % (Auto) 0.6 % (0.0-1.8) 01/11/17 06:03 Lymph # 2.3 K/mm3 (1.2-5.4) 01/11/17 06:03 [place] # 1.1 K/mm3 (0.0-0.8) H 01/11/17 06:03 Eos # 0.0 K/mm3 (0.0-0.4) 01/11/17 06:03 Baso # 0.1 K/mm3 (0.0-0.1) 01/11/17 06:03 Seg Neutrophils % 67.8 % (40.0-70.0) 01/11/17 06:03 Seg Neutrophils # 7.3 K/mm3 (1.8-7.7) 01/11/17 06:03 PT 13.4 Sec. (12.2-14.9) 01/09/17 10:24 INR 1.03 (0.87-1.13) 01/09/17 10:24 APTT 24.9 Sec. (24.2-36.6) 01/09/17 10:24 Sodium 139 mmol/L (137-145) 01/12/17 06:25 Potassium 3.8 mmol/L (3.6-5.0) 01/12/17 06:25 Chloride 101.3 mmol/L (98-107) 01/12/17 06:25 Carbon Dioxide 23 mmol/L (22-30) 01/12/17 06:25 Anion Gap 19 mmol/L 01/12/17 06:25 BUN 11 mg/dL (9-20) 01/12/17 06:25 Creatinine 0.6 mg/dL (0.8-1.5) L 01/12/17 06:25 Estimated GFR > 60 ml/min 01/12/17 06:25 BUN/Creatinine Ratio 18.33 % 01/12/17 06:25 Glucose 108 mg/dL (75-100) H 01/12/17 06:25 POC Glucose 107 (70-105) H 01/12/17 07:20 Calcium 7.8 mg/dL (8.4-10.2) L 01/12/17 06:25 Total Bilirubin 0.40 mg/dL (0.1-1.2) 01/10/17 06:59 AST 16 units/L (5-40) 01/10/17 06:59 ALT 11 units/L (7-56) 01/10/17 06:59 Alkaline Phosphatase 46 units/L (35-129) 01/10/17 06:59 Total Protein 6.9 g/dL (6.3-8.2) 01/10/17 06:59 Albumin 4.4 g/dL (3.9-5) 01/10/17 06:59 Albumin/Globulin Ratio 1.8 % 01/10/17 06:59 Blood Type A NEGATIVE 01/09/17 10:24 Antibody Screen TNR 01/09/17 10:24 ONEAL Antibody Screen Negative 01/09/17 10:24
[2017-01-12] MEDS: LACTATED RINGERS 1,000 ML IV SCH (22:25)
[2017-01-12] MEDS: AMBIEN PO PRN (22:27)
[2017-01-12] MEDS: NEURONTIN PO SCH (22:27)
[2017-01-13] MEDS: ROCEPHIN/NS 1 GM/50 ML 1 GM/50 ML BAG IV SCH (06:42)
[2017-01-13] MEDS: NORCO 5/325 PO PRN ×2 (06:50→15:37)
[2017-01-13 10:34] LABS: Basophils % (Auto) 0.9 % (0.0-1.8); Eosinophils % (Auto) 3.7 % (0.0-4.3); Hematocrit 35.4 % (35.5-45.6); Hemoglobin 11.8 gm/dl (11.8-15.2); Mean Corpuscular HGB Conc 33 % (32-34); Mean Corpuscular Hemoglobin 28 pg (28-32); Mean Corpuscular Volume 84 fl (84-94); Platelet Count 233 K/mm3 (140-440); Red Blood Count 4.23 M/mm3 (3.65-5.03); Red Cell Distribution Width 14.2 % (13.2-15.2); White Blood Count 8.8 K/mm3 (4.5-11.0)
--- NOTE | 2017-01-13 10:53 | Discharge Summary ---
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 Unfortunately urine cultures were not taken at the time of his initial nephrostomy tube placement, therefore he was treated with empiric antibiotics. He defervesced. Mehta catheter was removed, patient was making urine. He is being discharged on a course of oral antibiotics, he is a follow-up with urology as an outpatient. Discharge diagnoses Nephrolithiasis/obstructive uropathy Sepsis UTI Hypertension Type 2 diabetes Hyperlipidemia Chronic asthma Disposition: DC/TX- HOME UNDER HOME [facility] Time spent for discharge: 32 minutes Core Measure Documentation - Palliative Care Palliative Care/ Comfort Measures: Not Applicable - Core Measures Any of the following diagnoses?: none Exam - Constitutional Vitals: Temp Pulse Resp BP Pulse Ox 97 F L 84 16 121/79 98 01/13/17 07:00 01/13/17 07:00 01/13/17 07:00 01/13/17 07:00 01/13/17 07:00 General appearance: Present: no acute distress, well-nourished - EENT Eyes: Present: PERRL ENT: hearing intact, clear oral mucosa - Neck Neck: Present: supple, normal ROM - Respiratory Respiratory effort: normal Respiratory: bilateral: CTA - Cardiovascular Heart Sounds: Present: S1 & S2. Absent: rub, click - Extremities Extremities: pulses symmetrical, No edema Peripheral Pulses: within normal limits - Abdominal General gastrointestinal: Present: soft, non-tender, non-distended, normal bowel sounds Male genitourinary: Present: normal - Integumentary Integumentary: Present: clear, warm, dry - Musculoskeletal Musculoskeletal: gait normal, strength equal bilaterally - Psychiatric Psychiatric: appropriate mood/affect, intact judgment & insight - Neurologic Neurologic: CNII-XII intact, moves all extremities Plan Follow up with: ALEX SAMSON MD [Staff Physician] - 7 Days Prescriptions: Amoxicillin/K Clav Tab [Augmentin 500 MG TAB] 1 each PO Q12HR #14 tablet Oxycodone HCl/Acetaminophen [Percocet 10/325 mg] 0.5 - 1 each PO Q6HR PRN #30 tablet PRN Reason: Pain
[2017-01-13] MEDS: celeXA PO SCH (11:19)
[2017-01-13] MEDS: PEPCID PO SCH ×2 (11:20→21:41)
[2017-01-13] MEDS: COREG PO SCH ×2 (11:20→21:41)
[2017-01-13] MEDS: TRICOR PO SCH (11:21)
[2017-01-13 11:33] LABS: Anion Gap 17 mmol/L; BUN/Creatinine Ratio 15.71; Blood Urea Nitrogen 11 mg/dL (9-20); Calcium 8.5 mg/dL (8.4-10.2); Carbon Dioxide 25 mmol/L (22-30); Chloride 99.6 mmol/L (98-107); Glucose 101 mg/dL (75-100); Potassium 3.8 mmol/L (3.6-5.0); Sodium 138 mmol/L (137-145)
[2017-01-13] MEDS: DILAUDID IV PRN ×3 (11:42→21:35)
--- NOTE | 2017-01-13 14:37 | Progress Note ---
Assessment and Plan RT RENAL STONES - s/p PNL - WBC, Cr nl - pt stable / improved - occas low gr ? inflammatory response, no elev wbc, pt without symptoms of bacteremia - pt seen early AM then again tonight to evaluate events of the day - can discharge home Subjective Date of service: 01/13/17 Principal diagnosis: Right nephrolithiasis Interval history: no sig chills or fevers or subjective sign infection no abd pain no cp, no sob, passing gas; only pain at neph tube entry site Objective - Constitutional Vitals: Vital Signs - 12hr 01/13/17 07:00 Temperature 97 F L Pulse Rate 84 Respiratory 16 Rate Blood Pressure 121/79 [Right] O2 Sat by Pulse 98 Oximetry General appearance: Present: no acute distress - Respiratory Respiratory effort: normal - Gastrointestinal General gastrointestinal: Present: other (Back: Neph tube small clot and clear in tube, bag red; no palp mass; some mild erythem flank; some tape blister; some expect irritation at tube site) - Labs CBC & Chem 7: 01/13/17 09:58 01/13/17 09:58 Labs: Abnormal lab results 01/12/17 01/13/17 01/13/17 Range/Units 17:22 07:38 09:58 Hct 35.4 L (35.5-45.6) % [place] % (Auto) 8.5 H (0.0-7.3) % Creatinine (0.8-1.5) mg/dL Glucose (75-100) mg/dL POC Glucose 145 H 145 H (70-105) 01/13/17 Range/Units 09:58 Hct (35.5-45.6) % [place] % (Auto) (0.0-7.3) % Creatinine 0.7 L (0.8-1.5) mg/dL Glucose 101 H (75-100) mg/dL POC Glucose (70-105)
--- NOTE | 2017-01-13 15:41 | XRay Report ---
ROUTINE CHEST, TWO VIEWS: Postoperative respiratory difficulty. PA and lateral views demonstrate the heart and mediastinal contour to be of normal size and shape. The lungs are clear and fully expanded and the soft tissues and bony structures are normal. IMPRESSION: Normal study.
--- NOTE | 2017-01-13 15:45 | XRay Report ---
KUB: Postoperative exam for nephrolithotomy. There is an internal right renal stent extending from the kidney to the distal ureter. There is a right percutaneous drainage tube overlying the proximal stent. No calculus identified. No other significant findings.
--- NOTE | 2017-01-13 16:12 | Query-Kidney Disease ---
Jesus Lindsey__Rosendo Date:____01/13/17 And Drying Supervisor Cooking Casing/CDS:____Kevinlori Ally Phone#:___[phone] Exercise your independent professional judgment when responding to query. Questions asked do not imply a particular answer is desired or expected. We greatly appreciate your clarification on this issue. Clinical Documentation States: 51 year old male was admitted on 01/09/17. The discharge summary states " Condition: Good Hospital course: 51-year-old man who presented with right-sided flank pain, patient was found to have right-sided nephrolithiasis with obstructive uropathy, he was treated with IV antibiotics, IV fluids. Unfortunately urine cultures were not taken at the time of his initial nephrostomy tube placement, therefore he was treated with empiric antibiotics. He defervesced. Mehta catheter was removed, patient was making urine. He is being discharged on a course of oral antibiotics, he is a follow-up with urology as an outpatient. Discharge diagnoses Nephrolithiasis/obstructive uropathy Sepsis UTI Hypertension Type 2 diabetes Hyperlipidemia Chronic asthma " Clinical Findings Show: 01/09/17 01/12/17 Creatinine: 0.9 0.6 Please Clarify if you mean: Acute Renal Failure with or due to: [ ] Tubular Necrosis [ ] Cortical Necrosis [ ] Shock Kidney [ ] Vasomotor Nephropathy [ ] Lower Tubular Nephrosis [x ] Renal Tubular Stasis [ ] Tubular Nephrosis [ ] Medullary Necrosis [ ] Acute Renal Failure (unspecified) [ ] Other: [ ] Comment/Explanation: Chronic Kidney Disease (Please navajo applicable stage) 3 Stages Description GFR [ ] CKD Stage 1 90 mL/min or more [ ] CKD Stage 2 Mild decrease in Kidney function 60 to 89 mL/min [ ] CKD Stage 3 Moderate decrease in kidney function 30-59 [ ] CKD Stage 4 Severe decrease in kidney function 15-29 [ ] CKD Stage 5 Kidney failure; requiring dialysis or transplantation <15 [ ] ESRD Patient requiring dialysis for > 3 months or kidney transplant irrespective of level of GFR; Applicable for 1 year after kidney transplant [ ] Other: [ ] Comment/Explanation: Present on Admission: [x ] Yes (Y) [ ] Clinically undeterminable (W) [ ] No (N) Please also document response in your Progress Notes and/or Discharge Summary and indicate if the condition was present on admission MTDD
[2017-01-13] MEDS: BENADRYL PO PRN ×2 (16:14→21:35)
[2017-01-13] MEDS: LACTATED RINGERS 1,000 ML IV SCH (18:07)
[2017-01-13] MEDS: LEVAQUIN 750MG/150ML 750 MG/150 ML BAG IV SCH (20:00)
[2017-01-13] MEDS: AMBIEN PO PRN (21:41)
[2017-01-13] MEDS: NEURONTIN PO SCH (21:41)
[2017-01-14] MEDS: NORCO 5/325 PO PRN (07:00)
--- NOTE | 2017-01-14 07:31 | Event Note ---
Date: 01/13/17 no new pain, no sig abd pain, tube pain ex - neph tube draining pink tube Renal Stone - s/p PNL - no clear signs bacteremia, even w/ some low gr fever - pt has been kept inpt due to pain and eval sepsis - discharge planning - home health
[2017-01-14] MEDS: COREG PO SCH (10:09)
[2017-01-14] MEDS: celeXA PO SCH (10:09)
[2017-01-14] MEDS: TRICOR PO SCH (10:10)
[2017-01-14 10:11] VITALS: BP 130/74
[2017-01-14] MEDS: PEPCID PO SCH (10:11)
[2017-01-14] MEDS: LEVAQUIN 750MG/150ML 750 MG/150 ML BAG IV SCH (10:12)
--- NOTE | 2017-01-16 14:16 | Operative Report ---
PROCEDURE: This is a percutaneous nephrolithotomy. SURGEON: Tyrone Truong MD ANESTHESIA: General. SPECIMENS: Stones. ESTIMATED BLOOD LOSS: Minimal. COMPLICATIONS: None. FINDINGS: Large probably 100 small tiny stones and several medium sized stones. CLINICAL INDICATIONS: The patient counseled on RCBA, antibiotics, SCDs, had percutaneous access the day before. DESCRIPTION OF PROCEDURE: The patient transferred to the OR suite in supine position, anesthesia began, placed in the prone position, had Mehta catheter placed. Prepped and draped in standard fashion. At this point, our attention was taken with the intervention of radiology access. Incision made through the skin with #11 blade, that was taken down the fascia, this was dilated. Next, a Glidewire was passed down the bladder under fluoroscopic. Entire procedure done with intermittent fluoroscopy. To the bladder 5-Kazakh nephroureteral catheter removed. Then, 8-Kazakh, 12-Kazakh sheath passed, 8-Kazakh sheath removed and passed a second Glidewire. Next, the sheaths were removed. These were secured in place. Next, the NephroMax balloon dilator was passed under fluoroscopic visualization. Prior to this, dual limb ureteral catheter passed. Contrast injected. Confirmed the location of what appeared to be stones in the pelvis and a good posterior calyx access. Next, NephroMax balloon was passed. The balloon inflated to 9 atmospheres, easily dilated. This was held. Next, the 30-Kazakh sheath was passed under fluoroscopic visualization into the posterior calyx. Next, flexible nephroscope was passed, inspected, what appeared to be 100 or maybe even 100 or more tiny stones which likely gave the picture of filling calyces. These floated around. At first, there were some larger stones, medium stones probably 3 to 7 mm size. At this point, we passed the rigid nephroscope. We passed, grasping the stones with 3-inch two-point grasper, pulled these out, sent for analysis. Some stones were sent to the patient. Also, we suctioned as many of the smaller stones as possible. Additionally, we then passed the flexible nephroscope using a triceps and secure basket. We had to grab stones that were at the renal pelvis. We kept it inspecting. There were some calyces that were difficult to access. We made some small stone fragments or small particles. We tried to flush these out as best as possible, unless there was a stone hidden at some points by sheath or calyces or pressure on the kidney, there was no obvious big stones identified. At this point, contrast injected. Finger secured on the ureter without any injury. At this point, we inspected. Scope was withdrawn. We pulled the sheath back. There was a significant amount of what appeared to be bleeding along the tract. It was elected at this point, not to use a smaller nephrostomy tube or counselor catheter to reduce the bleeding. I thought it was safest to use a larger 24-Kazakh reentry catheter. Additionally, with the number of small fragments of concern that some of these could even be within the ureter to cause obstructions that it may be best to try the 24-Kazakh reentry catheter understanding the risk, but this would tampon off the bleeding around the tract, much better, and have significantly better hemostasis than a small tube and allow the reentry stent to go down the ureter. At this point, this was easily passed. The trocar retracted. This seemed to be in good position. The trocar was retracted. With the prongs of the mouth caught ____ catheter open contrast injected to confirm the position that this was not putting any pressure along the renal pelvis. This was actually pulled back some so that there would be no chance of migration and putting excessive pressure on the renal pelvis or other structures to minimize any risk of progression or other problem. Contrast injected. It seemed to be in excellent position. Contrast going down the ureter. At this point, the areas were irrigated, sheath had been removed. We sutured the skin and secured the tube with 0 Vicryl and 0 silk. These were secured in good position. The patient was awakened, transferred to the PACU in good type of condition. DRESSING: The patient was cleaned. Dressings placed with our standard dressing with pedicle tape with silk tape, dressings placed. Instructions given for security and other nursing staff. The patient was then placed in supine position, awakened and transferred to the PACU in good stable condition. JOB# [id number] ATS/NTS
== END 2017-01-14 11:30 | disposition home health service (06) | DRG 853 ==
LOC: OPU 07:52 → 3A 13:36 → 2B-SURG 01-10 18:03
PROVIDERS: ADMIT Internal Medicine; ATTEND Internal Medicine
PROC: 0T763DZ Dilation of Right Ureter with Intraluminal Device, Percutaneous Approach (ICD-10-PCS; principal; 2017-01-09)
PROC: BT111ZZ Fluoroscopy of Right Kidney using Low Osmolar Contrast (ICD-10-PCS; 2017-01-09)
PROC: 0TP5X0Z Removal of Drainage Device from Kidney, External Approach (ICD-10-PCS; 2017-01-09)
PROC: 0T9030Z Drainage of Right Kidney with Drainage Device, Percutaneous Approach (ICD-10-PCS; 2017-01-09)
PROC: 0TC03ZZ Extirpation of Matter from Right Kidney, Percutaneous Approach (ICD-10-PCS; 2017-01-14)
DX: A41.9 Sepsis, unspecified organism (principal); N17.0 Acute kidney failure with tubular necrosis; N39.0 Urinary tract infection, site not specified; N20.1 Calculus of ureter; N20.0 Calculus of kidney; I10 Essential (primary) hypertension; J45.909 Unspecified asthma, uncomplicated; E78.1 Pure hyperglyceridemia; I25.10 Atherosclerotic heart disease of native coronary artery without angina pectoris; E11.9 Type 2 diabetes mellitus without complications; E78.2 Mixed hyperlipidemia; K52.9 Noninfective gastroenteritis and colitis, unspecified; K21.9 Gastro-esophageal reflux disease without esophagitis; I25.9 Chronic ischemic heart disease, unspecified; Z91.041 Radiographic dye allergy status; Z88.8 Allergy status to other drugs, medicaments and biological substances; Z82.49 Family history of ischemic heart disease and other diseases of the circulatory system
CPT/HCPCS: 36415; 71020; 74000; 80048; 80053; 82365; 82962; 85025; 85027; 85610; 85730; 86850; 86900; 86901; 94640; 99406; A4217; C1726; C1769; G8978-GP; G8979-GP; G8980-GP; J0690; J0696; J1170; J1200; J1720; J1956; J2250; J2405; J2704; J7030; J7120; Q9967